=== PATIENT | male | born 1980 | race Caucasian/White ===

== ENCOUNTER → 2017-07-05 | Emergency (ER) | payer SELFPAY ==
[~2017-07-05] MED LIST: Adacel (T-DAP) 0.5 ML VIAL ONE; Cephalexin 250 MG CAP ONE; HYDROcodone/Acetaminophen 10/325 mg Tablet ONE; Naproxen 500 MG TAB ONE; Sulfameth/Trimethoprim DS 800-160mg TAB ONE
== END ==
LOC: MADERS 18:05
DX: L03.221 Cellulitis of neck (principal); L02.11 Cutaneous abscess of neck
CPT/HCPCS: 90471; 90715

== ENCOUNTER 2020-01-30 19:25 | Emergency (ER) | payer SELFPAY | END 2020-01-30 19:47 | disposition left against medical advice (07) | LOC: MADERS 19:25 | DX: Z53.21 Procedure and treatment not carried out due to patient leaving prior to being seen by health care provider (principal) ==